=== PATIENT | male | born 1955 | race Asian ===

== ENCOUNTER 2017-12-24 04:11 | Emergency (ER) | payer OTHER ==
[~2017-12-24] VITALS: Ht 162.6 cm; Wt 59.0 kg
[2017-12-24 04:15] VITALS: BP 143/93
[2017-12-24] MEDS ORDERED: ONDANSETRON 4 MG/2 ML VIAL IVP ONE (04:50)
[2017-12-24] MEDS ORDERED: NACL 0.9% 1,000 ML IV ONE (04:50)
[2017-12-24] MEDS ORDERED: MORPHINE SULFATE 4 MG/ML SYR IVP ONE (04:50)
[2017-12-24 05:40] LABS: ANION GAP 5.5 (8-16); CARBON DIOXIDE 30.2 mmol/L (21-32); CREATININE 1.1 mg/dL (0.7-1.3); POTASSIUM 3.7 mmol/L (3.5-5.1)
[2017-12-24 05:41] LABS: PROTHROMBIN TIME 9.8 secs (10.8-13.4)
[2017-12-24 05:45] LABS: ALBUMIN 3.6 g/dL (3.4-5.0); TOTAL BILIRUBIN 0.3 mg/dL (0.0-1.0)
[2017-12-24 06:41] VITALS: BP 140/95
[2017-12-24 07:15] LABS: HEMATOCRIT 46.8 % (36-52); HEMOGLOBIN 15.4 g/dL (12.0-18.0); MEAN CORPUSCULAR HEMOGLOBIN 31 pg (27-31); MEAN CORPUSCULAR HGB CONC 33 g/dL (33-37); MEAN CORPUSCULAR VOLUME 92.8 fL (80-94); PLATELET COUNT (AUTO) 171 K/uL (140-450); RED BLOOD CELL COUNT(AUTO) 5.04 MIL/uL (4.20-6.10); RED CELL DISTRIBUTION WIDTH 12.1 % (11.6-13.7); WHITE BLOOD COUNT (AUTO) 7.1 K/uL (4.8-10.8)
[2017-12-24 07:30] LABS: EOSINOPHILS % (MANUAL) 2 % (0-4); LYMPHOCYTES % (MANUAL) 20 % (20-46); MONOCYTES % (MANUAL) 11 % (5-12)
== END 2017-12-24 06:30 | disposition home or self-care (01) ==
LOC: MED 04:11
DX: K21.9 Gastro-esophageal reflux disease without esophagitis (principal); I10 Essential (primary) hypertension
CPT/HCPCS: 36415; 74176; 80053; 83690; 85025; 85610; 85730; 96374; 96375; 99285; J2270; J2405; J7030